=== PATIENT | female | born 1995 | race Caucasian/White ===

== ENCOUNTER → 2023-10-31 | Outpatient (CLI) | payer OTHER ==
[2023-11-11 21:06] LABS: HSV TYPE 1 AB, IGG <0.91 index (0.00-0.90)
== END | disposition home or self-care (01) ==
LOC: LABMN 08:46
PROVIDERS: ATTEND Chiropractor
DX: B00.9 Herpesviral infection, unspecified (principal)
CPT/HCPCS: 86695; 86696